=== PATIENT | male | born 1965 | race Caucasian/White ===

== ENCOUNTER 2018-11-24 09:51 | Day surgery (SDC) | payer OTHER ==
[~2018-11-24 09:51] MED LIST: Lactated Ringers 1,000 ML IV SCH; Lidocaine 1%/Sod Bicarbonate in NS 8.4% 1 ML Syringe IDERM PRN; Propofol 200 MG/20 ML SDV ONE
--- NOTE | 2018-11-24 10:07 | PCM.PREANE ---
Preanesthetic Assessment - Procedure Proposed Procedure: colonoscopy - Anesthesia/Transfusion/Family Hx Anesthesia History: Prior Anesthesia Reaction Type of Anesthesia Reaction: Excessive Somnolence Family History of Anesthesia Reaction: No Transfusion History: No Prior Transfusion(s) - Review of Systems General: No Symptoms Pulmonary: No Symptoms Cardiovascular: No Symptoms Gastrointestinal: No Symptoms Neurological: No Symptoms Other: Reports: None - Physical Assessment NPO Status Date: 11/24/18 NPO Status Time: 05:30 (bowel prep) Pulse: 73 O2 Sat by Pulse Oximetry: 93 Respiratory Rate: 18 Blood Pressure: 151/90 Temperature: 97.8 F Height: 6 ft Weight: 125.3 kg ASA Class: 2 Mental Status: Alert & Oriented x3 Airway Class: Mallampati = 2 Dentition: Reports: Normal Dentition Thyro-Mental Finger Breadths: 3 Mouth Opening Finger Breadths: 3 ROM/Head Extension: Full Lungs: Clear to Auscultation, Normal Respiratory Effort Cardiovascular: Regular Rate, Regular Rhythm - Allergies Allergies/Adverse Reactions: Allergies Allergy/AdvReac Type Severity Reaction Status Date / Time No Known Allergies Allergy Verified 11/23/18 11:35 - Blood Blood Available: No - Acknowledgements Anesthesia Type Planned: MAC Pt an Appropriate Candidate for the Planned Anesthesia: Yes Alternatives and Risks of Anesthesia Discussed w Pt/Guardian: Yes Pt/Guardian Understands and Agrees with Anesthesia Plan: Yes PreAnesthesia Questionnaire HEENT History: Reports: None Cardiovascular History: Reports: Hypertension Respiratory History: Reports: Sleep Apnea (doesnt use cpap) Gastrointestinal History: Reports: None Genitourinary History: Reports: Other (See Below) Other Genitourinary History: ERECTILE DYSFUNCITON 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 Musculoskeletal History: Other Musculoskeletal History: ACHILLES TENDINITIS, RIGHT ANTERIOR CRUCIATE LIGAMENT TEAR WITH REPAIR Neurological History: Reports: None Psychiatric History: Reports: None Endocrine/Metabolic History: Reports: None, Obesity/BMI 30+ Hematologic History: Reports: Hemochromatosis Immunologic History: Reports: None Oncologic (Cancer) History: Reports: None Dermatologic History: Reports: None - Past Surgical History HEENT Surgical History: Reports: None Cardiovascular Surgical History: Reports: None Respiratory Surgical History: Reports: None GI Surgical History: Reports: Appendectomy Male Surgical History: Reports: Vasectomy Endocrine Surgical History: Reports: None Neurological Surgical History: Reports: None Musculoskeletal Surgical History: Reports: None, Arthroscopic Knee Oncologic Surgical History: Reports: None Dermatological Surgical History: Reports: Other (See Below) (gout- crystals in right toe) - SUBSTANCE USE Smoking Status *Q: Former Smoker Tobacco Use Within Last Twelve Months: No Second Hand Smoke Exposure: No Days Per Week of Alcohol Use: 3 Number of Drinks Per Day: 3 Total Drinks Per Week: 9 Recreational Drug Use History: No - HOME MEDS Home Medications: Home Meds Allopurinol [Zyloprim] 300 mg PO DAILY 11/23/18 [History] Indomethacin 50 mg PO TID PRN 11/23/18 [History] Lisinopril 20 mg PO DAILY 11/23/18 [History] Sildenafil Citrate [Sildenafil] 50 mg PO ASDIRECTED 11/23/18 [History] - CURRENT (IN HOUSE) MEDS Current Meds: Current Medications Discontinued Medications Propofol (Diprivan 20 Ml) Confirm Administered Dose 200 mg .ROUTE .STK-MED ONE Stop: 11/24/18 09:46
[2018-11-24] MEDS ORDERED: Propofol 200 MG/20 ML SDV ONE ×3 (10:10→10:43)
[2018-11-24] MEDS ORDERED: Sodium Chloride 0.9% 10 ML Syringe FLUSH PRN (10:30)
--- NOTE | 2018-11-24 10:52 | PCM.POSTAN ---
POST ANESTHESIA ASSESSMENT - MENTAL STATUS Mental Status: Alert - RESPIRATORY Respiratory Status: Respiratory Rate WNL, Airway Patent, O2 Saturation Stable, Supplemental Oxygen - CARDIOVASCULAR CV Status: Pulse Rate WNL, Blood Pressure Stable - GASTROINTESTINAL GI Status: No Symptoms - POST OP HYDRATION Hydration Status: Adequate & Stable
--- NOTE | 2018-11-24 10:53 | PCM48HPAN ---
Post Anesthesia Note - EVALUATION WITHIN 48HRS OF ANESTHETIC Vital Signs in Normal Range: Yes Patient Participated in Evaluation: Yes Respiratory Function Stable: Yes Airway Patent: Yes Cardiovascular Function Stable: Yes Hydration Status Stable: Yes Pain Control Satisfactory: Yes Nausea and Vomiting Control Satisfactory: Yes Mental Status Recovered: Yes Pulse Rate: 73 Resp Rate: 18 Temperature: 36.6 C Blood Pressure: 151/90
--- NOTE | 2018-11-24 16:38 | OR ---
DATE OF OPERATION: 11/24/2018 SURGEON: Primo Leroy MD PREOPERATIVE DIAGNOSIS: Colorectal cancer screening. POSTOPERATIVE DIAGNOSIS: 1. Colorectal cancer screening. 2. Pandiverticulosis. 3. Colon polyps. OPERATION PERFORMED: 1. Screening colonoscopy. 2. Snare polypectomy x2. FINDINGS: He had pandiverticulosis. He had an excellent bowel prep. I identified 2 subcentimeter polyps, 1 in the cecum and 1 in the sigmoid colon, both removed in their entirety with a snare with electrocautery. PATHOLOGY: 1. Cecal polyp. 2. Sigmoid colon polyp. DISPOSITION: Stable at the end of the procedure. ANESTHESIA: Monitored anesthesia. INDICATION: José Antonio is a 53-year-old male who has never had a colonoscopy. He was referred for screening. He was fully informed of the major risks, benefits, and alternatives. The risks discussed include, but are not limited to perforation of the colon, bleeding, the risks of anesthesia, and the possibly of further surgery. He gave informed consent. DESCRIPTION OF PROCEDURE: José Antonio was brought to the gastro suite and placed in the left lateral decubitus position. He was given monitored anesthesia. Digital rectal exam was performed. This was negative. I introduced the colonoscope with copious lubrication into the rectum. I advanced the scope with gentle forward pressure keeping the lumen in view at all times. I advanced the scope to the cecum. I documented the cecum photographically. I slowly investigated the mucosa of the colon from the cecum back to the anus in an exam lasting 6 minutes. I identified a subcentimeter polyp in the cecum, which was removed with 2 bites of a snare. An additional polyp was identified in the sigmoid colon. This was removed with single bite of a snare with electrocautery. Aside from pandiverticulosis, the remainder of his exam was completely unremarkable. At the end of the procedure, the scope was withdrawn. Air was evacuated on the way out. PLAN: He will need another colonoscopy in 5 years. If the pathology proves to have villous features, then the 3-year followup colonoscopy would be warranted. ESTIMATED BLOOD LOSS: MMODAL /[id number]
== END 2018-11-24 11:22 | disposition home or self-care (01) ==
LOC: JD.SDS 09:51
PROVIDERS: ATTEND Surgery
DX: Z12.11 Encounter for screening for malignant neoplasm of colon (principal); D12.0 Benign neoplasm of cecum; D12.5 Benign neoplasm of sigmoid colon; K57.30 Diverticulosis of large intestine without perforation or abscess without bleeding; I10 Essential (primary) hypertension; E83.119 Hemochromatosis, unspecified; G47.33 Obstructive sleep apnea (adult) (pediatric); M10.9 Gout, unspecified; Z99.89 Dependence on other enabling machines and devices; Z87.891 Personal history of nicotine dependence; Z79.899 Other long term (current) drug therapy
CPT/HCPCS: 45385; J2704; J7120; 00812

== ENCOUNTER 2020-11-27 15:03 | Emergency (ER) | payer OTHER ==
--- NOTE | 2020-11-27 15:49 | EDM.PDOC ---
ED HPI GENERAL MEDICAL PROBLEM - General Chief Complaint: Cardiovascular Problem Stated Complaint: RAPID HEART RATE SENT BY [facility] Time Seen by Provider: 11/27/20 15:32 Source of Information: Reports: Patient History Limitations: Reports: No Limitations - History of Present Illness INITIAL COMMENTS - FREE TEXT/NARRATIVE: 55-year-old male presents to the emergency department today with complaints of palpitations and hypertension. He was seen at the [facility] today and was sent to the emergency department for further evaluation. Per the patient he states that he has had 3 episodes of feeling like his heart is racing over the past 24 hours. He states that this also causes his hands to be tremulous when he is experiencing this. He is denied any diaphoresis, nausea, chest pain or pressure associated with this. He likens it to butterflies racing in his stomach however he states it is in his chest. Patient does have a history of hypertension for which he takes lisinopril 20 mg daily. He also uses a CPAP however he admits he is not real compliant using it nightly. He reports that yesterday he had about a sixpack of beer as it was and he was grilling. However he states that he is only an occasional drinker. He denies any cigarette smoking or recreational drug use. 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 He also states that he does feel he has been under a bit of increased stress lately and has not been sleeping well as over the course of the past week he has woken up during the night and is not able to go back to sleep. - Related Data Allergies Allergy/AdvReac Type Severity Reaction Status Date / Time No Known Allergies Allergy Verified 11/27/20 15:21 Home Meds: Home Meds Indomethacin 50 mg PO TID PRN 11/23/18 [History] Lisinopril 20 mg PO DAILY 11/23/18 [History] Sildenafil Citrate 50 mg PO ASDIRECTED 11/23/18 [History] allopurinoL [Zyloprim] 100 mg PO DAILY 11/23/18 [History] Past Medical History HEENT History: Reports: None Cardiovascular History: Reports: Hypertension Respiratory History: Reports: Sleep Apnea Gastrointestinal History: Reports: None Genitourinary History: Reports: Other (See Below) Other Genitourinary History: ERECTILE DYSFUNCITON 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 Musculoskeletal History: Other Musculoskeletal History: ACHILLES TENDINITIS, RIGHT ANTERIOR CRUCIATE LIGAMENT TEAR WITH REPAIR Neurological History: Reports: None Psychiatric History: Reports: None Endocrine/Metabolic History: Reports: None, Obesity/BMI 30+ Hematologic History: Reports: Hemochromatosis Immunologic History: Reports: None Oncologic (Cancer) History: Reports: None Dermatologic History: Reports: None - Infectious Disease History Infectious Disease History: Reports: Chicken Pox, Shingles - Past Surgical History HEENT Surgical History: Reports: None Cardiovascular Surgical History: Reports: None Respiratory Surgical History: Reports: None GI Surgical History: Reports: Appendectomy Male Surgical History: Reports: Vasectomy Endocrine Surgical History: Reports: None Neurological Surgical History: Reports: None Musculoskeletal Surgical History: Reports: None, Arthroscopic Knee Oncologic Surgical History: Reports: None Dermatological Surgical History: Reports: Other (See Below) Social & Family History - Family History Family Medical History: No Pertinent Family History - Tobacco Use Tobacco Use Status *Q: Never Tobacco User Second Hand Smoke Exposure: No - Caffeine Use Caffeine Use: Reports: Coffee - Recreational Drug Use Recreational Drug Use: No ED ROS GENERAL - Review of Systems Review Of Systems: Comprehensive ROS is negative, except as noted in HPI. ED EXAM, GENERAL - Physical Exam Exam: See Below Exam Limited By: No Limitations General Appearance: Alert, WD/WN, No Apparent Distress Ears: Normal External Exam, Hearing Grossly Normal Nose: Normal Inspection Throat/Mouth: Normal Inspection, Normal Lips, Normal Voice, No Airway Compromise Head: Atraumatic Neck: Normal Inspection, Supple Respiratory/Chest: No Respiratory Distress, Lungs Clear, Normal Breath Sounds, No Accessory Muscle Use, Chest Non-Tender Cardiovascular: Normal Peripheral Pulses, Regular Rate, Rhythm, No Edema, No Murmur Peripheral Pulses: 2+: Radial (L), Radial (R) GI/Abdominal: Normal Bowel Sounds, Soft, Non-Tender, No Distention (Male) Exam: Deferred Rectal (Males) Exam: Deferred Back Exam: Normal Inspection Extremities: Normal Inspection, No Pedal Edema, Normal Capillary Refill Neurological: Alert, Oriented, Normal Cognition Psychiatric: Normal Affect, Normal Mood Skin Exam: Warm, Dry, Intact, Normal Color, No Rash Lymphatic: No Adenopathy #1 Interpretation EKG Date: 11/27/20 Time: 17:05 Rhythm: NSR Rate (Beats/Min): 78 [place]: Normal P-Wave: Present QRS: Normal ST-T: Normal QT: Normal EKG Interpretation Comments: Per Dr. Armijo interpretation: Sinus rhythm at 78; early R wave transition consider right ventricular hypertrophy versus septal hypertrophy; mild LAD ( approximately 26%); left atrial hypertrophy; diffuse early repolarization pattern; Q waves 3 and aVFold inferior wall AL Course - Vital Signs Text/Narrative:: Patient presents with feelings of heart palpitations and tremors in his bilateral hands 3 times over the course the past 24 hours. Patient was seen at the [facility] clinic today with similar complaints and they did obtain an EKG at that time and his heart rate was 83. He was sent to the emergency department for further evaluation. At the time of my assessment the patient admitted to feeling like he was having palpitations and his heart rate on the monitor was sinus rhythm at 76. I have ordered labs including a CBC, CMP, magnesium, troponin, and TSH. I have also ordered a chest x-ray and EKG. Last Recorded V/S: Last Vital Signs Temp 98 F 11/27/20 15:17 Pulse 79 11/27/20 15:17 Resp 20 11/27/20 15:17 BP 143/101 H 11/27/20 15:17 Pulse Ox 97 11/27/20 15:17 - Orders/Labs/Meds Orders: Active Orders 24 hr Category Date Time Status EKG Documentation Completion [RC] STAT Care 11/27/20 15:42 Active Chest 1V Frontal [CR] Stat Exams 11/27/20 15:42 Taken Labs: Laboratory Tests 11/27/20 11/27/20 Range/Units 15:55 15:55 WBC 7.64 (4.23-9.07) K/mm3 RBC 4.93 (4.63-6.08) M/mm3 Hgb 15.7 (13.7-17.5) gm/dl Hct 46.1 (40.1-51.0) % MCV 93.5 H D (79.0-92.2) fl MCH 31.8 (25.7-32.2) pg MCHC 34.1 (32.2-35.5) g/dl RDW Std Deviation 41.9 (35.1-43.9) fL Plt Count 367 H (163-337) K/mm3 MPV 9.5 (9.4-12.3) fl Neut % (Auto) 58.5 (34.0-67.9) % Lymph % (Auto) 31.2 (21.8-53.1) % [place] % (Auto) 8.2 (5.3-12.2) % Eos % (Auto) 0.8 (0.8-7.0) Baso % (Auto) 1.0 (0.1-1.2) % Neut # (Auto) 4.47 (1.78-5.38) K/mm3 Lymph # (Auto) 2.38 (1.32-3.57) K/mm3 [place] # (Auto) 0.63 (0.30-0.82) K/mm3 Eos # (Auto) 0.06 (0.04-0.54) K/mm3 Baso # (Auto) 0.08 (0.01-0.08) K/mm3 Sodium 141 (136-145) mEq/L Potassium 4.2 (3.5-5.1) mEq/L Chloride 106 (98-107) mEq/L Carbon Dioxide 24 (21-32) mEq/L Anion Gap 15.2 H (5-15) BUN 16 (7-18) mg/dL Creatinine 1.2 (0.7-1.3) mg/dL Est Cr Clr Drug Dosing 75.44 mL/min Estimated GFR (MDRD) > 60 (>60) mL/min BUN/Creatinine Ratio 13.3 L (14-18) Glucose 150 H (70-99) mg/dL Calcium 8.8 (8.5-10.1) mg/dL Magnesium 2.1 (1.8-2.4) mg/dL Total Bilirubin 0.4 (0.2-1.0) mg/dL AST 33 (15-37) U/L ALT 50 (16-63) U/L Alkaline Phosphatase 95 (46-116) U/L Troponin I < 0.017 (0.00-0.056) ng/mL Total Protein 7.0 (6.4-8.2) g/dl Albumin 3.7 (3.4-5.0) g/dl Globulin 3.3 gm/dL Albumin/Globulin Ratio 1.1 (1-2) TSH 3rd Generation 0.706 (0.358-3.74) uIU/mL - Re-Assessments/Exams Free Text/Narrative Re-Assessment/Exam: 11/27/20 17:19 Hematology reveals a WBC of 7.64, hemoglobin 15.7, hematocrit 46.1, platelet count 367, chemistry reveals a sodium of 141, potassium 4.2, carbon dioxide 24, anion gap 15.2, BUN 16, creatinine 1.2, GFR greater than 60, glucose 150, magnesium 2.1, troponin less than 0.017, TSH 0.706 Nothing acute is appreciated on portable view of the chest. Formal radiology report is pending. Patient will be discharged home with 48-hour Holter monitor. He will need to follow-up with his primary care provider early next week. Departure - Departure Time of Disposition: 17:23 Disposition: Home, Self-Care 01 Condition: Good Clinical Impression: Palpitation Instructions: Palpitations, [id number] Referrals: Katherine Powers HEALTHC[facility] RECEPTIONIST [Primary Care Provider] - Forms: ED Department Discharge Additional Instructions: You were seen in the emergency department today with complaints of palpitation and feeling your heart was racing. EKG, chest x-ray and lab work was completed. These were all essentially unremarkable. We did not notice any rapid heartbeat while you are in the emergency department. I suspect this is likely due to noncompliance with you wearing your CPAP and a combination of stress and anxiety. You were sent home with 48-hour Holter monitor. This report is sent to gis programmer and read within a couple of days. Recommend that you schedule follow-up with your appointment with your primary care provider for early next week to further evaluate your palpitations. Should your condition worsen or change, do not hesitate returning to the emergency department. Sepsis Event Note (ED) - Evaluation Sepsis Screening Result: No Definite Risk - Focused Exam Vital Signs: Vital Signs Temp Pulse Resp BP Pulse Ox 11/27/20 15:17 98 F 79 20 143/101 H 97 - My Orders Last 24 Hours: My Active Orders 11/27/20 15:42 EKG Documentation Completion [RC] STAT Chest 1V Frontal [CR] Stat - Assessment/Plan Last 24 Hours: My Active Orders 11/27/20 15:42 EKG Documentation Completion [RC] STAT Chest 1V Frontal [CR] Stat
--- NOTE | 2020-11-27 19:39 | CR ---
Chest: Portable view of the chest was obtained. Comparison: No prior chest imaging is available. Heart size and mediastinum are normal. Lungs are clear with no acute parenchymal change being seen. No acute osseous abnormality is appreciated. Impression: 1. Nothing acute is seen on portable chest x-ray. Diagnostic code #1
== END 2020-11-27 17:57 | disposition home or self-care (01) ==
LOC: JD.ED 15:03
DX: R00.2 Palpitations (principal); I10 Essential (primary) hypertension; E66.9 Obesity, unspecified; Z79.899 Other long term (current) drug therapy; Z68.30 Body mass index [BMI] 30.0-30.9, adult
CPT/HCPCS: 36415; 71045; 71045-26; 80053; 83735; 84443; 84484; 85025; 93005; 93010; 93225; 93226; 99283; 99285-25

== ENCOUNTER 2022-10-25 16:01 | Inpatient (IN) | payer OTHER ==
[2022-10-25] MEDS ORDERED: Sodium Chloride 0.9% 10 ML Syringe FLUSH PRN (16:05)
[2022-10-25 16:15] LABS: BASOPHILS ABSOLUTE AUTO 0.05 K/mm3 (0.01-0.08); BASOPHILS PERCENT AUTO 0.5 % (0.1-1.2); EOSINOPHILS ABSOLUTE AUTO 0.07 K/mm3 (0.04-0.54); EOSINOPHILS PERCENT AUTO 0.6 (0.8-7.0); HEMATOCRIT 43.7 % (40.1-51.0); HEMOGLOBIN 15.4 gm/dl (13.7-17.5); IMMATURE GRAN ABSOLUTE AUTO 0.03 K/mm3 (0.00-0.10); IMMATURE GRAN PERCENT AUTO 0.3 % (<=1.0); LYMPHOCYTES ABSOLUTE AUTO 4.53 K/mm3 (1.32-3.57); MEAN CORPUSCULAR HEMOGLOBIN 33.5 pg (25.7-32.2); MEAN CORPUSCULAR HGB CONC 35.2 g/dl (32.2-35.5); MEAN PLATELET VOLUME 9.9 fl (9.4-12.3); MONOCYTES ABSOLUTE AUTO 0.56 K/mm3 (0.30-0.82); MONOCYTES PERCENT AUTO 5.1 % (5.3-12.2); NEUTROPHILS ABSOLUTE AUTO 5.81 K/mm3 (1.78-5.38); NEUTROPHILS PERCENT AUTO 52.5 % (34.0-67.9); PLATELET COUNT,PLT 370 K/mm3 (163-337); WHITE BLOOD CELL COUNT,WBC 11.05 K/mm3 (4.23-9.07)
[2022-10-25] MEDS ORDERED: LORazepam 2 MG/ML SDV IVPUSH ONE (16:17)
[2022-10-25 16:35] LABS: A/G RATIO 1.2 (1-2); ALANINE AMINOTRANSFERASE,ALT 136 U/L (16-63); ALBUMIN 3.8 g/dl (3.4-5.0); ALKALINE PHOSPHATASE 65 U/L (46-116); ANION GAP 15.7 (5-15); ASPARTATE AMNIOTRANSFERASE,AST 128 U/L (15-37); BILIRUBIN TOTAL 0.6 mg/dL (0.2-1.0); BLOOD UREA NITROGEN,BUN 17 mg/dL (7-18); BUN/CREATININE RATIO 11.3 (14-18); CALCIUM 8.5 mg/dL (8.5-10.1); CARBON DIOXIDE,CO2 23 mEq/L (21-32); CHLORIDE,CL 106 mEq/L (98-107); CREATININE 1.5 mg/dL (0.7-1.3); ESTIMATED GFR 54 mL/min (>60); GLUCOSE RANDOM 143 mg/dL (70-99); POTASSIUM,K 3.7 mEq/L (3.5-5.1); SODIUM,NA 141 mEq/L (136-145)
[2022-10-25] MEDS ORDERED: Sodium Chloride 0.9% 10 ML Syringe FLUSH ONE (17:08)
[2022-10-25] MEDS ORDERED: Iopamidol 612 MG/ML 100 ML Bottle IVPUSH ONE (17:08)
[2022-10-25] MEDS ORDERED: Iopamidol 612 MG/ML 50 ML SDV IARTIC ONE (17:09)
[2022-10-25] MEDS ORDERED: HYDROmorphone 0.5 MG/0.5 ML Syringe IVPUSH ONE (17:39)
[2022-10-25] MEDS ORDERED: Ondansetron 4 MG/2 ML SDV IV PRN (19:18)
[2022-10-25] MEDS ORDERED: LORazepam 2 MG/ML SDV IV PRN (19:18)
[2022-10-25] MEDS ORDERED: Docusate Sodium 100 MG Cap PO PRN (19:18)
[2022-10-25 19:26] LABS: APPEARANCE,URINE CLEAR (Clear); BILIRUBIN,URINE NEGATIVE (Negative); COLOR,URINE LIGHT YELLOW (Yellow); GLUCOSE,URINE NEGATIVE (Negative); KETONES,URINE NEGATIVE (Negative); LEUKOCYTE ESTERASE,URINE NEGATIVE (Negative); NITRITE,URINE NEGATIVE (Negative); OCCULT BLOOD,URINE 2+ (Negative); PROTEIN,URINE 1+ (Negative); UROBILINOGEN,URINE 0.2 (0.2-1.0)
[2022-10-25 19:51] LABS: BACTERIA,URINE FEW /hpf (FEW); MUCUS,URINE FEW /hpf (FEW); RBC,URINE 50-75 /hpf (0-5); SQUAMOUS EPITHELIAL CELLS,UR 0-5 /hpf (0-5); WBC,URINE 0-5 /hpf (0-5)
[2022-10-25] MEDS: Ketorolac 30 MG/ML SDV IVPUSH SCH (20:11)
[2022-10-25] MEDS: Acetaminophen 325 MG Tab PO SCH (20:11)
[2022-10-26] MEDS: Sodium Chloride 0.9% 1,000 ML IV SCH ×3 (00:09→13:11)
[2022-10-26] MEDS: oxyCODONE 5 MG Tab PO PRN ×5 (00:09→23:17)
[2022-10-26] MEDS: Acetaminophen 325 MG Tab PO SCH ×4 (01:25→20:16)
[2022-10-26] MEDS: Ketorolac 30 MG/ML SDV IVPUSH SCH ×4 (01:27→19:22)
[2022-10-26 05:48] LABS: ANION GAP 17.2 (5-15); BUN/CREATININE RATIO 13.1 (14-18); CALCIUM 8.1 mg/dL (8.5-10.1); CREATININE 1.3 mg/dL (0.7-1.3); EST CRCL DRUG DOSING (CG) 67.98 mL/min; POTASSIUM,K 4.2 mEq/L (3.5-5.1)
[2022-10-26] MEDS: Enoxaparin 40 MG/0.4 ML Syringe SUBCUT SCH (08:22)
[2022-10-26] MEDS: Sertraline 25 MG Tab PO SCH (08:22)
[2022-10-26] MEDS: Lisinopril 20 MG Tab PO SCH (08:23)
[2022-10-26] MEDS ORDERED: Sertraline 25 MG Tab PO SCH (09:00)
[2022-10-26] MEDS ORDERED: fentaNYL 100 MCG/2 ML SDV IVPUSH PRN (12:36)
[2022-10-26] MEDS ORDERED: Ondansetron 4 MG/2 ML SDV IVPUSH PRN (12:36)
[2022-10-26] MEDS ORDERED: HYDROmorphone 0.5 MG/0.5 ML Syringe IVPUSH PRN (12:36)
[2022-10-26] MEDS ORDERED: Lidocaine 1% with EPINEPHrine 1:100,000 20 ML MDV ONE (12:45)
[2022-10-26] MEDS ORDERED: Bupivacaine 0.5% 30 ML SDV ONE (12:45)
[2022-10-26] MEDS ORDERED: Propofol 200 MG/20 ML SDV ONE (12:49)
[2022-10-26] MEDS ORDERED: Lidocaine 1% 2 ML ONE (12:49)
[2022-10-26] MEDS ORDERED: Bupivacaine 0.5%/EPINEPHrine 1:200,000 50 ML MDV ONE (12:49)
[2022-10-26] MEDS ORDERED: Midazolam 1 MG/ML 2 ML SDV ONE (12:50)
[2022-10-26] MEDS ORDERED: fentaNYL 100 MCG/2 ML SDV ONE ×2 (12:50→13:32)
[2022-10-26] MEDS ORDERED: ceFAZolin 1 GM Vial ONE (14:00)
[2022-10-27] MEDS: Ketorolac 30 MG/ML SDV IVPUSH SCH ×3 (00:32→12:52)
[2022-10-27] MEDS: Acetaminophen 325 MG Tab PO SCH ×5 (00:35→18:55)
[2022-10-27] MEDS: HYDROmorphone 0.5 MG/0.5 ML Syringe IVPUSH PRN ×4 (00:40→21:27)
[2022-10-27] MEDS: oxyCODONE 5 MG Tab PO PRN ×3 (03:30→20:38)
[2022-10-27 05:54] LABS: CREATININE 1.1 mg/dL (0.7-1.3); EST CRCL DRUG DOSING (CG) 80.34 mL/min
[2022-10-27] MEDS: Sertraline 25 MG Tab PO SCH (08:22)
[2022-10-27] MEDS: Enoxaparin 40 MG/0.4 ML Syringe SUBCUT SCH (08:22)
[2022-10-27] MEDS: Lisinopril 20 MG Tab PO SCH (08:22)
[2022-10-28] MEDS: Acetaminophen 325 MG Tab PO SCH ×4 (00:36→19:03)
[2022-10-28] MEDS: oxyCODONE 5 MG Tab PO PRN ×5 (00:37→20:37)
[2022-10-28] MEDS: Lisinopril 20 MG Tab PO SCH (08:59)
[2022-10-28] MEDS: Enoxaparin 40 MG/0.4 ML Syringe SUBCUT SCH (09:00)
[2022-10-28] MEDS: Sertraline 25 MG Tab PO SCH (09:02)
[2022-10-28] MEDS: HYDROmorphone 0.5 MG/0.5 ML Syringe IVPUSH PRN ×5 (09:34→22:46)
[2022-10-29] MEDS: oxyCODONE 5 MG Tab PO PRN ×4 (00:40→18:34)
[2022-10-29] MEDS: Acetaminophen 325 MG Tab PO SCH ×4 (00:41→18:34)
[2022-10-29] MEDS: HYDROmorphone 0.5 MG/0.5 ML Syringe IVPUSH PRN ×5 (04:12→20:59)
[2022-10-29] MEDS: Lisinopril 20 MG Tab PO SCH (08:56)
[2022-10-29] MEDS: Sertraline 25 MG Tab PO SCH (08:57)
[2022-10-29] MEDS: Enoxaparin 40 MG/0.4 ML Syringe SUBCUT SCH (08:57)
[2022-10-30] MEDS: Acetaminophen 325 MG Tab PO SCH ×6 (00:26→18:33)
[2022-10-30] MEDS: oxyCODONE 5 MG Tab PO PRN ×4 (00:26→17:30)
[2022-10-30] MEDS: HYDROmorphone 0.5 MG/0.5 ML Syringe IVPUSH PRN ×6 (05:11→23:59)
[2022-10-30] MEDS: Lisinopril 20 MG Tab PO SCH (08:23)
[2022-10-30] MEDS: Enoxaparin 40 MG/0.4 ML Syringe SUBCUT SCH (08:23)
[2022-10-30] MEDS: Sertraline 25 MG Tab PO SCH (08:23)
[2022-10-31] MEDS: oxyCODONE 5 MG Tab PO PRN ×4 (00:37→17:32)
[2022-10-31] MEDS: Acetaminophen 325 MG Tab PO SCH ×4 (00:38→18:34)
[2022-10-31] MEDS: HYDROmorphone 0.5 MG/0.5 ML Syringe IVPUSH PRN ×4 (04:32→22:31)
[2022-10-31] MEDS: Enoxaparin 40 MG/0.4 ML Syringe SUBCUT SCH (08:37)
[2022-10-31] MEDS: Lisinopril 20 MG Tab PO SCH (08:37)
[2022-10-31] MEDS: Sertraline 25 MG Tab PO SCH (08:37)
[2022-11-01] MEDS: Acetaminophen 325 MG Tab PO SCH ×4 (00:56→18:30)
[2022-11-01] MEDS: oxyCODONE 5 MG Tab PO PRN ×5 (00:57→22:40)
[2022-11-01] MEDS: HYDROmorphone 0.5 MG/0.5 ML Syringe IVPUSH PRN ×5 (03:52→20:55)
[2022-11-01] MEDS: Enoxaparin 40 MG/0.4 ML Syringe SUBCUT SCH (08:25)
[2022-11-01] MEDS: Lisinopril 20 MG Tab PO SCH (08:25)
[2022-11-01] MEDS: Sertraline 25 MG Tab PO SCH (08:25)
[2022-11-02] MEDS: HYDROmorphone 0.5 MG/0.5 ML Syringe IVPUSH PRN ×2 (02:33→09:25)
[2022-11-02] MEDS: Acetaminophen 325 MG Tab PO SCH ×4 (02:34→18:37)
[2022-11-02] MEDS: oxyCODONE 5 MG Tab PO PRN ×5 (05:10→22:32)
[2022-11-02] MEDS: Enoxaparin 40 MG/0.4 ML Syringe SUBCUT SCH (08:54)
[2022-11-02] MEDS: Lisinopril 20 MG Tab PO SCH (08:55)
[2022-11-02] MEDS: Sertraline 25 MG Tab PO SCH (10:09)
[2022-11-03] MEDS: Acetaminophen 325 MG Tab PO SCH ×2 (01:28→08:07)
[2022-11-03] MEDS: oxyCODONE 5 MG Tab PO PRN ×2 (03:18→08:07)
[2022-11-03] MEDS: Sertraline 25 MG Tab PO SCH (08:07)
[2022-11-03] MEDS: Lisinopril 20 MG Tab PO SCH (08:08)
[2022-11-03] MEDS: Enoxaparin 40 MG/0.4 ML Syringe SUBCUT SCH (08:08)
== END 2022-11-03 09:26 | disposition home or self-care (01) | DRG 200 ==
LOC: JD.ED 16:01 → JD.MS 19:19
PROVIDERS: ADMIT Surgery; ATTEND Surgery
PROC: 0W9930Z Drainage of Right Pleural Cavity with Drainage Device, Percutaneous Approach (ICD-10-PCS; principal; 2022-10-26)
DX: S27.0XXA Traumatic pneumothorax, initial encounter (principal); S22.41XA Multiple fractures of ribs, right side, initial encounter for closed fracture; I10 Essential (primary) hypertension; F32.A Depression, unspecified; E66.9 Obesity, unspecified; F17.200 Nicotine dependence, unspecified, uncomplicated; S00.81XA Abrasion of other part of head, initial encounter; Z86.16 Personal history of COVID-19; Z90.49 Acquired absence of other specified parts of digestive tract; V86.99XA Unspecified occupant of other special all-terrain or other off-road motor vehicle injured in nontraffic accident, initial encounter; Z79.899 Other long term (current) drug therapy; Z68.39 Body mass index [BMI] 39.0-39.9, adult
CPT/HCPCS: 36415; 64420; 64421; 70450; 70450-26; 71045; 71045-26; 71260; 71260-26; 72125; 72125-26; 74177; 74177-26; 80048; 80053; 81001; 82565; 83690; 85025; 94761; 94762; 96374; 96375; 99284; 99285-25; A9270-GY; J0690; J1170; J1650; J1885; J2060; J2250; J2405; J2704; J3010; J3490; J7030; Q9967